=== PATIENT | female | born 1955 | race Caucasian/White ===

== ENCOUNTER 2016-11-24 12:12 | Inpatient (IN) | payer OTHER ==
[2016-11-24 12:43] VITALS: BMI 34.8
--- NOTE | 2016-11-24 15:17 | HP ---
CIWA Score - CIWA Score Nausea/Vomitin-No Nausea/No Vomiting Muscle Tremors: 3 Anxiety: 4-Mod. Anxious/Guarded Agitation: 3 Paroxysmal Sweats: 2 Orientation: 0-Oriented Tacttile Disturbances: 3-Moderate Itch/Numb/Burn Auditory Disturbances: 0-None Visual Disturbances: 0-None Headache: 0-None Present CIWA-Ar Total Score: 15 Admission ROS BHS - HPI Chief Complaint: DETOX TX FOR ALCOHOL DEPENDENCE Allergies/Adverse Reactions: Allergies Allergy/AdvReac Type Severity Reaction Status Date / Time Fish Containing Products Allergy Intermediate Rash Verified 11/24/16 14:08 No Known Drug Allergies Allergy Verified 11/24/16 14:08 History of Present Illness: 61 Y/O H/FEMALE WITH A HX OF ALCOHOL DEPENDENCE SEEKING DETOX TX Exam Limitations: No Limitations, Intoxication - Ebola screening Have you traveled outside of the country in the last 21 days: No Have you had contact with anyone from an Ebola affected area: No Have you been sick,other than usual withdrawal symptoms: No Do you have a fever: No - Review of Systems Constitutional: Chills, Night Sweats, Changes in sleep EENT: reports: Blurred Vision (WEARS GLASSES), Nose Congestion, Dental Problems (MISSING ALL TEETH) Respiratory: reports: Shortness of Breath (ASTHMA HX), Wheezing Cardiac: reports: Lightheadedness GI: reports: Constipated, Poor Appetite, Poor Fluid Intake, Indigestion (GERD HX ), Abdominal cramping : reports: Frequency Musculoskeletal: reports: Back Pain, Joint Pain, Muscle Pain Integumentary: reports: Dryness Neuro: reports: Headache, Unsteady Gait (USES WALKER), Dizziness Endocrine: reports: No Symptoms Reported Hematology: reports: No Symptoms Reported Psychiatric: reports: Orientated x3, Anxious, Depressed Other Systems: Reviewed and Negative Patient History - Patient Medical History Hx Anemia: No Hx Asthma: Yes (MDI) Hx Chronic Obstructive Pulmonary Disease (COPD): Yes Hx Cancer: No Hx Cardiac Disorders: No Hx Congestive Heart Failure: No Hx Hypertension: Yes (on meds.) Hx Hypercholesterolemia: No Hx Pacemaker: No HX Cerebrovascular Accident: No Hx Seizures: No Hx Dementia: No Hx Diabetes: No Hx Gastrointestinal Disorders: Yes (GERD) Hx Liver Disease: No Hx Genitourinary Disorders: No Hx Sexually Transmitted Disorders: No Hx Renal Disease (ESRD): No Hx Thyroid Disease: No Hx Human Immunodeficiency Virus (HIV): No (NEGATIVE HX) Hx Hepatitis C: Yes (carrier) Hx Depression: No Hx Suicide Attempt: No (DENIES) Hx Bipolar Disorder: No Hx Schizophrenia: No - Patient Surgical History Past Surgical History: Yes Hx Neurologic Surgery: No Hx Cataract Extraction: No Hx Cardiac Surgery: No Hx Lung Surgery: No Hx Breast Surgery: No Hx Breast Biopsy: No Hx Abdominal Surgery: No Hx Appendectomy: No Hx Cholecystectomy: No Hx Genitourinary Surgery: No Hx Section: No Hx Orthopedic Surgery: No Hx Hysterectomy: No Other Surgical History: TONSILLECTOMY AT 7 YRS OLD Anesthesia Reaction: No - PPD History Previous Implant?: Yes Documented Results: Positive w/proof Implanted On Prior [facility] Admission?: No Results: CXR 01/14/16 PPD to be Administered?: No - Reproductive History Patient is a Female of Child Bearing Age (11 -55 yrs old): No (MENOPAUSAL) Last Menstrual Period: 12/23/05 Patient : No - Smoking Cessation Smoking history: Current every day smoker Have you smoked in the past 12 months: Yes Aproximately how many cigarettes per day: 20 Hx Chewing Tobacco Use: No Initiated information on smoking cessation: Yes 'Breaking Loose' booklet given: 11/24/16 - Substance & Tx. History Hx Alcohol Use: Yes (BARCADI/BEER) Hx Substance Use: No (DENIES) Substance Use Type: Alcohol Hx Substance Use Treatment: Yes ([facility]-DETOX; [facility]-MMTP 50 MG PO DAILY) - Substances Abused Alcohol Route: Oral Frequency: Daily Amount used: 1/2 PINT RUM/ 3 40 OZ BEER Age of first use: 15 Date of Last Use: 11/24/16 Family Disease History - Family Disease History Family Disease History: Diabetes: Mother (parkinsons), Other: Father (alcoholic ), Mother Admission Physical Exam BHS - Vital Signs Vital Signs: Vital Signs - 24 hr 11/24/16 12:41 Temperature 96.7 F L Pulse Rate 75 Respiratory 20 Rate Blood Pressure 113/77 - Physical General Appearance: Yes: Moderate Distress, Irritable, Anxious HEENTM: Yes: EOMI, Normocephalic, AMELIA, Pharynx Normal Respiratory: Yes: Chest Non-Tender, No Respiratory Distress, Wheezing, Expiration Neck: Yes: Supple, Trachea in good position Breast: Yes: Breast Exam Deferred Cardiology: Yes: Regular Rhythm, Regular Rate, S1, S2 Abdominal: Yes: Normal Bowel Sounds, Non Tender, Soft Genitourinary: Yes: Other (N/C) Back: Yes: Within Normal Limits Musculoskeletal: Yes: full range of Motion, Gait Steady Extremities: Yes: Normal Range of Motion, Non-Tender Neurological: Yes: filter changer II-XII NML intact, Fully Oriented, Alert Integumentary: Yes: Dry, Warm Lymphatic: Yes: Within Normal Limits - Diagnostic (1) Alcohol dependence with uncomplicated withdrawal Current Visit: No Status: Chronic (2) COPD (chronic obstructive pulmonary disease) Current Visit: Yes Status: Chronic Qualifiers: COPD type: chronic bronchitis Chronic bronchitis type: simple Qualified Code(s): J41.0 - Simple chronic bronchitis (3) Essential hypertension Current Visit: Yes Status: Chronic (4) Low back pain Current Visit: Yes Status: Chronic Qualifiers: Back pain laterality: unspecified (5) Methadone maintenance therapy patient Current Visit: Yes Status: Chronic Comment: dose of 50mg pending verification (6) Nicotine dependence Current Visit: Yes Status: Chronic Qualifiers: Nicotine product type: cigarettes Substance use status: uncomplicated Qualified Code(s): F17.210 - Nicotine dependence, cigarettes, uncomplicated (7) PVD (peripheral vascular disease) Current Visit: Yes Status: Chronic (8) Walker as ambulation aid Current Visit: Yes Status: Chronic Cleared for Admission [facility] - Detox or Rehab [facility] Level of Care: Medically Managed Detox Regimen/Protocol: Librium [facility] Breath Alcohol Content Breath Alcohol Content: 0.037 Urine Pregancy Test - Result Urine Test Results: Negative- NO Line Present Urine Drug Screen - Results Drug Screen Negative: No Urine Drug Screen Results: MTD-Methadone
[2016-11-24] MEDS ORDERED: MENTHOL/PHENOL 1 EACH UD MM PRN (15:28)
[2016-11-24] MEDS ORDERED: hydrOXYzine PAMOATE 25 MG CAPSULE (FP) PO PRN (15:28)
[2016-11-24] MEDS ORDERED: MAGNESIUM HYDROX 2400MG/30ML ORAL SUSPENSION 30 ML CUP PO PRN (15:28)
[2016-11-24] MEDS ORDERED: P-EPHED 60MG/TRIPROLIDI 2.5MG TABLET PO PRN (15:28)
[2016-11-24] MEDS ORDERED: MAGNESIUM CITRATE 300 ML BOTTLE PO PRN (15:28)
[2016-11-24] MEDS ORDERED: NICOTINE POLACRILEX 4 MG GUM BUC PRN (15:28)
[2016-11-24] MEDS ORDERED: chlordiazePOXIDE HCL 25 MG CAPSULE PO PRN (15:28)
[2016-11-24] MEDS ORDERED: guaiFENesin/D-METHORPHAN HB 10 ML UNIT-DOSE CUPS PO PRN (15:28)
[2016-11-24] MEDS ORDERED: MAG HYDROX/AL HYDROX/SIMETH 30 ML UNIT-DOSE CUP PO PRN (15:28)
[2016-11-24] MEDS ORDERED: LOPERAMIDE HCL 2 MG CAPSULE PO PRN (15:28)
[2016-11-24] MEDS ORDERED: ALBUTEROL SO4 6.7 GM HFA INHALER IH PRN (15:30)
[2016-11-24] MEDS ORDERED: chlordiazePOXIDE HCL 25 MG CAPSULE PO ONE (15:42)
[2016-11-24] MEDS: chlordiazePOXIDE HCL 25 MG CAPSULE PO SCH ×2 (16:58→22:24)
[2016-11-24] MEDS: NICOTINE 21 MG/24 HOURS TOPICAL PATCH TD SCH (17:00)
[2016-11-24 19:07] LABS: URINE APPEARANCE CLEAR; URINE BILIRUBIN NEGATIVE (NEGATIVE); URINE BLOOD NEGATIVE (NEGATIVE); URINE COLOR COLORLESS; URINE GLUCOSE (UA) NEGATIVE (NEGATIVE); URINE KETONE NEGATIVE (NEGATIVE); URINE LEUK ESTERASE NEGATIVE (NEGATIVE); URINE NITRITE NEGATIVE (NEGATIVE); URINE PROTEIN NEGATIVE (NEGATIVE); URINE UROBILINOGEN NEGATIVE E.U./dl (0.2-1.0)
[2016-11-24] MEDS: BUDESONIDE/FORMETEROL FUMARATE 80/4.5 mcg INHALER IH SCH (22:00)
[2016-11-24] MEDS: MONTELUKAST NA 10 MG TABLET PO SCH (22:24)
[2016-11-24] MEDS: THIAMINE HCL 100 MG TABLET (FP) PO SCH (22:24)
[2016-11-24] MEDS: RANITIDINE HCL 150 MG TABLET (FP) PO SCH (22:26)
[2016-11-25] MEDS: IBUPROFEN 400 MG TABLET (FP) PO PRN (02:32)
[2016-11-25] MEDS: chlordiazePOXIDE HCL 25 MG CAPSULE PO SCH ×4 (05:29→22:10)
[2016-11-25] MEDS ORDERED: METHADONE HCL 10 MG TABLET PO ONE (08:31)
[2016-11-25] MEDS ORDERED: METHADONE 40 MG, METHADONE 10 MG PO ONE (08:40)
[2016-11-25] MEDS ORDERED: METHADONE HCL 40 MG DISPERSABLE TABLET ONE (09:04)
[2016-11-25] MEDS ORDERED: METHADONE HCL 10 MG TABLET ONE (09:04)
[2016-11-25] MEDS: HYDROCHLOROTHIAZIDE 25 MG TABLET (FP) PO SCH (09:56)
[2016-11-25] MEDS: PRENATAL VITAMINS W/ FOLIC ACID TABLET (FP) PO SCH (09:56)
[2016-11-25] MEDS: ENALAPRIL MALEATE 10 MG TABLET (FP) PO SCH (09:56)
[2016-11-25] MEDS: ASPIRIN COATED 81 MG TABLET.EC PO SCH (09:56)
[2016-11-25] MEDS: BUDESONIDE/FORMETEROL FUMARATE 80/4.5 mcg INHALER IH SCH ×2 (09:57→22:10)
[2016-11-25] MEDS: RANITIDINE HCL 150 MG TABLET (FP) PO SCH ×2 (09:57→22:10)
[2016-11-25] MEDS: NICOTINE 21 MG/24 HOURS TOPICAL PATCH TD SCH (09:59)
[2016-11-25 10:11] LABS: MCH 30.2 pg (25.7-33.7); MCHC 33.4 g/dl (32.0-36.0); MEAN CELL VOLUME 90.4 fl (80-96); MEAN PLT VOLUME 10.3 fl (7.5-11.1); PLATELET COUNT 136 K/MM3 (134-434); RDW 14.3 % (11.6-15.6); WHITE BLOOD COUNT 5.6 K/mm3 (4.0-10.0)
--- NOTE | 2016-11-25 10:33 | PN ---
S CIWA - CIWA Score Nausea/Vomitin Muscle Tremors: 3 Anxiety: 2 Agitation: 2 Paroxysmal Sweats: 3 Orientation: 0-Oriented Tacttile Disturbances: 2-Mild Itch/Numbness/Burn Auditory Disturbances: 0-None Visual Disturbances: 0-None Headache: 0-None Present CIWA-Ar Total Score: 14 S Progress Note (SOAP) Subjective: interrupted sleep, sweats, nausea,diarrhea, aches /pains Objective: 11/25/16 10:30 Vital Signs Temperature 97.9 F 11/25/16 09:41 Pulse Rate 69 11/25/16 09:41 Respiratory Rate 18 11/25/16 09:41 Blood Pressure 128/78 11/25/16 09:41 O2 Sat by Pulse Oximetry (%) Laboratory Tests 11/24/16 11/25/16 17:30 06:00 WBC 5.6 RBC 4.58 Hgb 13.8 Hct 41.4 MCV 90.4 MCHC 33.4 RDW 14.3 Plt Count 136 MPV 10.3 Urine Color Colorless Urine Appearance Clear Urine pH 6.0 Ur Specific [place] < 1.005 Urine Protein Negative Urine Glucose (UA) Negative Urine Ketones Negative Urine Blood Negative Urine Nitrite Negative Urine Bilirubin Negative Urine Urobilinogen Negative Ur Leukocyte Esterase Negative pt aox3 uses walker for ambulation 11/25/16 11:49 Assessment: 11/25/16 11:49 withdrawal sx's diarrhea Plan: cot. detox increase fluids imodium prn
[2016-11-25 10:56] LABS: ALBUMIN 3.5 g/dl (3.4-5.0); ALK PHOS 103 U/L (45-117); ANION GAP 8 (8-16); BILIRUBIN,TOTAL 0.5 mg/dL (0.2-1.0); CALCIUM 8.4 mg/dL (8.5-10.1); CO2 27 mmol/L (21-32); CREATININE 0.5 mg/dL (0.55-1.02); GLUCOSE,RANDOM 79 mg/dL (74-106); SGOT/AST 28 U/L (15-37); SGPT/ALT 29 U/L (12-78); TOT PROT 6.8 g/dl (6.4-8.2)
--- NOTE | 2016-11-25 17:38 | EKG ---
Test Reason : Blood Pressure : / mmHG Vent. Rate : 076 BPM Atrial Rate : 076 BPM P-R Int : 200 ms QRS Dur : 092 ms QT Int : 388 ms P-R-T Axes : 044 023 042 degrees QTc Int : 436 ms NORMAL SINUS RHYTHM NORMAL ECG NO PREVIOUS ECGS AVAILABLE Confirmed by ANTONETTE JONES MD ([id number]) on 11/25/2016 5:38:35 PM Referred By: Confirmed By:ANTONETTE JONES MD
[2016-11-25] MEDS: MONTELUKAST NA 10 MG TABLET PO SCH (22:10)
[2016-11-25] MEDS: THIAMINE HCL 100 MG TABLET (FP) PO SCH (22:10)
[2016-11-25] MEDS: diphenhydrAMINE HCL 50 MG CAPSULE PO PRN (22:13)
[2016-11-26] MEDS ORDERED: METHADONE HCL 10 MG TABLET ONE (05:09)
[2016-11-26] MEDS ORDERED: METHADONE HCL 40 MG DISPERSABLE TABLET ONE (05:09)
[2016-11-26] MEDS: METHADONE 40 MG, METHADONE 10 MG PO SCH (05:31)
[2016-11-26] MEDS: chlordiazePOXIDE HCL 25 MG CAPSULE PO SCH ×2 (05:31→10:57)
[2016-11-26] MEDS ORDERED: METHADONE HCL 5 MG TABLET PO SCH (06:00)
[2016-11-26] MEDS: ENALAPRIL MALEATE 10 MG TABLET (FP) PO SCH (10:57)
[2016-11-26] MEDS: ASPIRIN COATED 81 MG TABLET.EC PO SCH (10:57)
[2016-11-26] MEDS: NICOTINE 21 MG/24 HOURS TOPICAL PATCH TD SCH (10:57)
[2016-11-26] MEDS: HYDROCHLOROTHIAZIDE 25 MG TABLET (FP) PO SCH (10:57)
[2016-11-26] MEDS: PRENATAL VITAMINS W/ FOLIC ACID TABLET (FP) PO SCH (10:57)
[2016-11-26] MEDS: RANITIDINE HCL 150 MG TABLET (FP) PO SCH ×2 (10:57→22:20)
[2016-11-26] MEDS: BUDESONIDE/FORMETEROL FUMARATE 80/4.5 mcg INHALER IH SCH ×2 (10:59→22:20)
--- NOTE | 2016-11-26 12:03 | PN ---
[facility] CIWA - CIWA Score Nausea/Vomitin-No Nausea/No Vomiting Muscle Tremors: 3 Anxiety: 3 Agitation: 3 Paroxysmal Sweats: 3 Orientation: 0-Oriented Tacttile Disturbances: 0-None Auditory Disturbances: 0-None Visual Disturbances: 0-None Headache: 0-None Present CIWA-Ar Total Score: 12 [facility] Progress Note (SOAP) Subjective: body aches sweats interrupted sleep agitation Objective: 11/26/16 12:02 Vital Signs Temperature 97.9 F 11/26/16 10:52 Pulse Rate 76 11/26/16 10:52 Respiratory Rate 20 11/26/16 10:52 Blood Pressure 104/82 11/26/16 10:52 O2 Sat by Pulse Oximetry (%) Laboratory Tests 11/24/16 11/25/16 11/25/16 17:30 06:00 06:00 WBC 5.6 RBC 4.58 Hgb 13.8 Hct 41.4 MCV 90.4 MCHC 33.4 RDW 14.3 Plt Count 136 MPV 10.3 Sodium 137 Potassium 4.6 D Chloride 102 Carbon Dioxide 27 Anion Gap 8 BUN 12 Creatinine 0.5 L Creat Clearance w eGFR > 60 Random Glucose 79 Calcium 8.4 L Total Bilirubin 0.5 D AST 28 ALT 29 D Alkaline Phosphatase 103 Total Protein 6.8 Albumin 3.5 Urine Color Colorless Urine Appearance Clear Urine pH 6.0 Ur Specific [place] < 1.005 Urine Protein Negative Urine Glucose (UA) Negative Urine Ketones Negative Urine Blood Negative Urine Nitrite Negative Urine Bilirubin Negative Urine Urobilinogen Negative Ur Leukocyte Esterase Negative RPR Titer 11/25/16 06:00 WBC RBC Hgb Hct MCV MCHC RDW Plt Count MPV Sodium Potassium Chloride Carbon Dioxide Anion Gap BUN Creatinine Creat Clearance w eGFR Random Glucose Calcium Total Bilirubin AST ALT Alkaline Phosphatase Total Protein Albumin Urine Color Urine Appearance Urine pH Ur Specific [place] Urine Protein Urine Glucose (UA) Urine Ketones Urine Blood Urine Nitrite Urine Bilirubin Urine Urobilinogen Ur Leukocyte Esterase RPR Titer Nonreactive awake/alert ambulating no acute distress Assessment: 11/26/16 12:02 withdrawal sx Plan: continue detox increase fluids
[2016-11-26] MEDS: chlordiazePOXIDE 5 MG CAPSULE PO SCH ×2 (17:21→22:22)
[2016-11-26] MEDS: CYCLOBENZAPRINE HCL 10 MG TABLET (FP) PO PRN ×2 (20:07→22:25)
[2016-11-26] MEDS: MONTELUKAST NA 10 MG TABLET PO SCH (22:20)
[2016-11-26] MEDS: THIAMINE HCL 100 MG TABLET (FP) PO SCH (22:21)
[2016-11-26] MEDS: diphenhydrAMINE HCL 50 MG CAPSULE PO PRN (22:26)
[2016-11-27] MEDS ORDERED: METHADONE HCL 40 MG DISPERSABLE TABLET ONE (02:48)
[2016-11-27] MEDS ORDERED: METHADONE HCL 10 MG TABLET ONE (02:49)
[2016-11-27] MEDS: chlordiazePOXIDE 5 MG CAPSULE PO SCH ×2 (06:03→11:07)
[2016-11-27] MEDS: METHADONE 40 MG, METHADONE 10 MG PO SCH (06:03)
[2016-11-27] MEDS: CYCLOBENZAPRINE HCL 10 MG TABLET (FP) PO PRN ×2 (06:05→17:39)
[2016-11-27] MEDS: ENALAPRIL MALEATE 10 MG TABLET (FP) PO SCH (11:06)
[2016-11-27] MEDS: PRENATAL VITAMINS W/ FOLIC ACID TABLET (FP) PO SCH (11:06)
[2016-11-27] MEDS: RANITIDINE HCL 150 MG TABLET (FP) PO SCH ×2 (11:06→22:07)
[2016-11-27] MEDS: HYDROCHLOROTHIAZIDE 25 MG TABLET (FP) PO SCH (11:07)
[2016-11-27] MEDS: ASPIRIN COATED 81 MG TABLET.EC PO SCH (11:07)
[2016-11-27] MEDS: NICOTINE 21 MG/24 HOURS TOPICAL PATCH TD SCH (11:07)
[2016-11-27] MEDS: BUDESONIDE/FORMETEROL FUMARATE 80/4.5 mcg INHALER IH SCH ×2 (11:07→22:08)
--- NOTE | 2016-11-27 14:17 | PN ---
S Progress Note (SOAP) Subjective: Interrupted sleep, anxiety Objective: 11/27/16 14:17 Vital Signs - 8 hr 11/27/16 10:54 Temperature 97.9 F Pulse Rate 82 Respiratory 18 Rate Blood Pressure 110/62 Laboratory Last Values WBC 5.6 K/mm3 (4.0-10.0) 11/25/16 06:00 RBC 4.58 M/mm3 (3.60-5.2) 11/25/16 06:00 Hgb 13.8 GM/dL (10.7-15.3) 11/25/16 06:00 Hct 41.4 % (32.4-45.2) 11/25/16 06:00 MCV 90.4 fl (80-96) 11/25/16 06:00 MCHC 33.4 g/dl (32.0-36.0) 11/25/16 06:00 RDW 14.3 % (11.6-15.6) 11/25/16 06:00 Plt Count 136 K/MM3 (134-434) 11/25/16 06:00 MPV 10.3 fl (7.5-11.1) 11/25/16 06:00 Sodium 137 mmol/L (136-145) 11/25/16 06:00 Potassium 4.6 mmol/L (3.5-5.1) D 11/25/16 06:00 Chloride 102 mmol/L (98-107) 11/25/16 06:00 Carbon Dioxide 27 mmol/L (21-32) 11/25/16 06:00 Anion Gap 8 (8-16) 11/25/16 06:00 BUN 12 mg/dL (7-18) 11/25/16 06:00 Creatinine 0.5 mg/dL (0.55-1.02) L 11/25/16 06:00 Creat Clearance w eGFR > 60 (>60) 11/25/16 06:00 Random Glucose 79 mg/dL (74-106) 11/25/16 06:00 Calcium 8.4 mg/dL (8.5-10.1) L 11/25/16 06:00 Total Bilirubin 0.5 mg/dL (0.2-1.0) D 11/25/16 06:00 AST 28 U/L (15-37) 11/25/16 06:00 ALT 29 U/L (12-78) D 11/25/16 06:00 Alkaline Phosphatase 103 U/L (45-117) 11/25/16 06:00 Total Protein 6.8 g/dl (6.4-8.2) 11/25/16 06:00 Albumin 3.5 g/dl (3.4-5.0) 11/25/16 06:00 Urine Color Colorless 11/24/16 17:30 Urine Appearance Clear 11/24/16 17:30 Urine pH 6.0 (5.0-8.0) 11/24/16 17:30 Ur Specific [place] < 1.005 (1.001-1.035) 11/24/16 17:30 Urine Protein Negative (NEGATIVE) 11/24/16 17:30 Urine Glucose (UA) Negative (NEGATIVE) 11/24/16 17:30 Urine Ketones Negative (NEGATIVE) 11/24/16 17:30 Urine Blood Negative (NEGATIVE) 11/24/16 17:30 Urine Nitrite Negative (NEGATIVE) 11/24/16 17:30 Urine Bilirubin Negative (NEGATIVE) 11/24/16 17:30 Urine Urobilinogen Negative E.U./dl (0.2-1.0) 11/24/16 17:30 Ur Leukocyte Esterase Negative (NEGATIVE) 11/24/16 17:30 RPR Titer Nonreactive (NONREACTIVE) 11/25/16 06:00 Labs noted Assessment: 11/27/16 14:17 withdrawal sx Plan: continue detox
[2016-11-27] MEDS: chlordiazePOXIDE HCL 10 MG CAPSULE PO SCH ×2 (18:51→22:08)
[2016-11-27] MEDS: MONTELUKAST NA 10 MG TABLET PO SCH (22:07)
[2016-11-27] MEDS: THIAMINE HCL 100 MG TABLET (FP) PO SCH (22:07)
[2016-11-27] MEDS: diphenhydrAMINE HCL 50 MG CAPSULE PO PRN (22:08)
[2016-11-28] MEDS: IBUPROFEN 400 MG TABLET (FP) PO PRN (03:21)
[2016-11-28] MEDS ORDERED: METHADONE HCL 40 MG DISPERSABLE TABLET ONE (05:56)
[2016-11-28] MEDS ORDERED: METHADONE HCL 10 MG TABLET ONE (05:57)
[2016-11-28] MEDS: METHADONE 40 MG, METHADONE 10 MG PO SCH (05:57)
[2016-11-28] MEDS: chlordiazePOXIDE HCL 10 MG CAPSULE PO SCH ×2 (05:58→11:36)
[2016-11-28] MEDS: ACETAMINOPHEN 325 MG TABLET (FP) PO PRN ×2 (06:06→13:21)
[2016-11-28 09:54] VITALS: BP 115/73; PULSE 79; TEMP 97.2
--- NOTE | 2016-11-28 10:30 | DS ---
[facility] Detox Discharge Summary Admission Date: 11/24/16 Discharge Date: 11/28/16 - History Present History: Alcohol Dependence, MMTP Pertinent Past History: Asthma/COPD HTN GERD Hep C - Physical Exam Results Vital Signs: Vital Signs Temperature 97.2 F L 11/28/16 09:53 Pulse Rate 79 11/28/16 09:53 Respiratory Rate 16 11/28/16 09:53 Blood Pressure 115/73 11/28/16 09:53 O2 Sat by Pulse Oximetry (%) Pertinent Admission Physical Exam Findings: Withdrawal sx. Laboratory Last Values WBC 5.6 K/mm3 (4.0-10.0) 11/25/16 06:00 RBC 4.58 M/mm3 (3.60-5.2) 11/25/16 06:00 Hgb 13.8 GM/dL (10.7-15.3) 11/25/16 06:00 Hct 41.4 % (32.4-45.2) 11/25/16 06:00 MCV 90.4 fl (80-96) 11/25/16 06:00 MCHC 33.4 g/dl (32.0-36.0) 11/25/16 06:00 RDW 14.3 % (11.6-15.6) 11/25/16 06:00 Plt Count 136 K/MM3 (134-434) 11/25/16 06:00 MPV 10.3 fl (7.5-11.1) 11/25/16 06:00 Sodium 137 mmol/L (136-145) 11/25/16 06:00 Potassium 4.6 mmol/L (3.5-5.1) D 11/25/16 06:00 Chloride 102 mmol/L (98-107) 11/25/16 06:00 Carbon Dioxide 27 mmol/L (21-32) 11/25/16 06:00 Anion Gap 8 (8-16) 11/25/16 06:00 BUN 12 mg/dL (7-18) 11/25/16 06:00 Creatinine 0.5 mg/dL (0.55-1.02) L 11/25/16 06:00 Creat Clearance w eGFR > 60 (>60) 11/25/16 06:00 Random Glucose 79 mg/dL (74-106) 11/25/16 06:00 Calcium 8.4 mg/dL (8.5-10.1) L 11/25/16 06:00 Total Bilirubin 0.5 mg/dL (0.2-1.0) D 11/25/16 06:00 AST 28 U/L (15-37) 11/25/16 06:00 ALT 29 U/L (12-78) D 11/25/16 06:00 Alkaline Phosphatase 103 U/L (45-117) 11/25/16 06:00 Total Protein 6.8 g/dl (6.4-8.2) 11/25/16 06:00 Albumin 3.5 g/dl (3.4-5.0) 11/25/16 06:00 Urine Color Colorless 11/24/16 17:30 Urine Appearance Clear 11/24/16 17:30 Urine pH 6.0 (5.0-8.0) 11/24/16 17:30 Ur Specific [place] < 1.005 (1.001-1.035) 11/24/16 17:30 Urine Protein Negative (NEGATIVE) 11/24/16 17:30 Urine Glucose (UA) Negative (NEGATIVE) 11/24/16 17:30 Urine Ketones Negative (NEGATIVE) 11/24/16 17:30 Urine Blood Negative (NEGATIVE) 11/24/16 17:30 Urine Nitrite Negative (NEGATIVE) 11/24/16 17:30 Urine Bilirubin Negative (NEGATIVE) 11/24/16 17:30 Urine Urobilinogen Negative E.U./dl (0.2-1.0) 11/24/16 17:30 Ur Leukocyte Esterase Negative (NEGATIVE) 11/24/16 17:30 RPR Titer Nonreactive (NONREACTIVE) 11/25/16 06:00 labs noted - Treatment Hospital Course: Detox Protocol Followed, Detoxed Safely, Responded well, Discharged Condition Good, Rehab Referral Accepted Patient has Accepted a Rehab Referral to: Rehab after 12/01/16 - Medication Discharge Medications: Ambulatory Orders Albuterol Sulfate Inhaler - [Ventolin HFA Inhaler -] 2 puff IH Q4H PRN #1 inhaler 07/20/16 Aspirin Coated [Ecotrin -] 81 mg PO DAILY #30 tablet.ec 07/20/16 Budesonide/Formeterol Fumarate [SYMBICORT 80/4.5mcg -] 2 puff IH BID #1 inhaler 07/20/16 Enalapril Maleate [Vasotec -] 20 mg PO DAILY #30 tablet 07/20/16 Hydrochlorothiazide [Hctz -] 25 mg PO DAILY #30 tablet 07/20/16 Montelukast Na [Singulair -] 10 mg PO HS #30 tablet 07/20/16 Ranitidine [Zantac -] 150 mg PO BID #60 tablet 07/20/16 - Diagnosis (1) COPD (chronic obstructive pulmonary disease) Current Visit: Yes Status: Chronic Qualifiers: COPD type: chronic bronchitis Chronic bronchitis type: simple Qualified Code(s): J41.0 - Simple chronic bronchitis (2) Essential hypertension Current Visit: Yes Status: Chronic (3) Low back pain Current Visit: Yes Status: Chronic Qualifiers: Back pain laterality: unspecified (4) Methadone maintenance therapy patient Current Visit: Yes Status: Chronic (5) Nicotine dependence Current Visit: Yes Status: Chronic Qualifiers: Nicotine product type: cigarettes Substance use status: uncomplicated Qualified Code(s): F17.210 - Nicotine dependence, cigarettes, uncomplicated (6) PVD (peripheral vascular disease) Current Visit: Yes Status: Chronic (7) Walker as ambulation aid Current Visit: Yes Status: Chronic (8) Alcohol dependence with uncomplicated withdrawal Current Visit: Yes Status: Chronic - AMA Did Patient Leave Against Medical Advice: No
[2016-11-28] MEDS: ENALAPRIL MALEATE 10 MG TABLET (FP) PO SCH (10:44)
[2016-11-28] MEDS: HYDROCHLOROTHIAZIDE 25 MG TABLET (FP) PO SCH (10:44)
[2016-11-28] MEDS: ASPIRIN COATED 81 MG TABLET.EC PO SCH (10:44)
[2016-11-28] MEDS: RANITIDINE HCL 150 MG TABLET (FP) PO SCH (10:44)
[2016-11-28] MEDS: BUDESONIDE/FORMETEROL FUMARATE 80/4.5 mcg INHALER IH SCH (10:44)
[2016-11-28] MEDS: PRENATAL VITAMINS W/ FOLIC ACID TABLET (FP) PO SCH (10:44)
[2016-11-28] MEDS: NICOTINE 21 MG/24 HOURS TOPICAL PATCH TD SCH (11:36)
== END 2016-11-28 13:25 | disposition home or self-care (01) | DRG 773 ==
LOC: YASAS 12:12 → Y6N 14:29
PROVIDERS: ADMIT Internal Medicine Addiction Medicine; ATTEND Internal Medicine Addiction Medicine
PROC: HZ2ZZZZ Detoxification Services for Substance Abuse Treatment (ICD-10-PCS; principal; 2016-11-24)
DX: F10.230 Alcohol dependence with withdrawal, uncomplicated (principal); F11.20 Opioid dependence, uncomplicated; F17.210 Nicotine dependence, cigarettes, uncomplicated; I10 Essential (primary) hypertension; M54.5 Low back pain; R26.2 Difficulty in walking, not elsewhere classified; Z99.89 Dependence on other enabling machines and devices; I73.9 Peripheral vascular disease, unspecified; J45.909 Unspecified asthma, uncomplicated; J41.0 Simple chronic bronchitis; K21.9 Gastro-esophageal reflux disease without esophagitis; B18.2 Chronic viral hepatitis C; R19.7 Diarrhea, unspecified
CPT/HCPCS: 36415; 80053; 81003; 85027; 86593; 93005; 93010

== ENCOUNTER 2017-05-07 10:43 | Inpatient (IN) | payer OTHER ==
[2017-05-07 12:15] VITALS: BMI 36.6
[2017-05-07] MEDS ORDERED: P-EPHED 60MG/TRIPROLIDI 2.5MG TABLET PO PRN (14:56)
[2017-05-07] MEDS ORDERED: MAGNESIUM HYDROX 2400MG/30ML ORAL SUSPENSION 30 ML CUP PO PRN (14:56)
[2017-05-07] MEDS ORDERED: hydrOXYzine PAMOATE 50 MG CAPSULE (FP) PO PRN (14:56)
[2017-05-07] MEDS ORDERED: MAGNESIUM CITRATE 300 ML BOTTLE PO PRN (14:56)
[2017-05-07] MEDS ORDERED: guaiFENesin/D-METHORPHAN HB 10 ML UNIT-DOSE CUPS PO PRN (14:56)
[2017-05-07] MEDS ORDERED: NICOTINE POLACRILEX 4 MG GUM BC PRN (14:56)
[2017-05-07] MEDS ORDERED: chlordiazePOXIDE HCL 25 MG CAPSULE PO PRN (14:56)
[2017-05-07] MEDS ORDERED: MENTHOL/PHENOL 1 EACH UD MM PRN (14:56)
[2017-05-07] MEDS ORDERED: LOPERAMIDE HCL 2 MG CAPSULE PO PRN (14:56)
[2017-05-07] MEDS ORDERED: MAG HYDROX/AL HYDROX/SIMETH 30 ML UNIT-DOSE CUP PO PRN (14:56)
[2017-05-07] MEDS ORDERED: chlordiazePOXIDE HCL 25 MG CAPSULE PO ONE (14:56)
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
[2017-05-07] MEDS ORDERED: ALBUTEROL SO4 18 GM HFA INHALER IH PRN (14:58)
[2017-05-07] MEDS ORDERED: diazePAM 5 MG TABLET PO PRN (15:00)
--- NOTE | 2017-05-07 18:19 | PN ---
S Progress Note Note: 62 years old female with alcohol dependence,mmtp 50 mgs/day,last medicated today ,admitted for inpatinet detox from alcohol medical managed with librium regimen
[2017-05-07 18:43] LABS: URINE APPEARANCE CLEAR; URINE BILIRUBIN NEGATIVE (NEGATIVE); URINE BLOOD 1+ (NEGATIVE); URINE COLOR LTYELLOW; URINE GLUCOSE (UA) NEGATIVE (NEGATIVE); URINE KETONE NEGATIVE (NEGATIVE); URINE NITRITE NEGATIVE (NEGATIVE); URINE PROTEIN NEGATIVE (NEGATIVE); URINE UROBILINOGEN NEGATIVE mg/dL (0.2-1.0)
[2017-05-07] MEDS: chlordiazePOXIDE HCL 25 MG CAPSULE PO SCH ×2 (18:49→22:36)
[2017-05-07] MEDS: ACETAMINOPHEN 325 MG TABLET (FP) PO PRN (18:50)
[2017-05-07 19:00] LABS: URINE BACTERIA RARE /hpf (NONE SEEN); URINE MUCUS RARE; URINE RBC 5 /hpf (0-3); URINE WBC <1 /hpf (3-5)
[2017-05-07 21:00] LABS: URINE LEUK ESTERASE Negative (NEGATIVE)
[2017-05-07] MEDS: RANITIDINE HCL 150 MG TABLET (FP) PO SCH (22:35)
[2017-05-07] MEDS: MONTELUKAST NA 10 MG TABLET PO SCH (22:35)
[2017-05-07] MEDS: BUDESONIDE/FORMETEROL FUMARATE 80/4.5 mcg INHALER IH SCH (22:35)
[2017-05-07] MEDS: THIAMINE HCL 100 MG TABLET (FP) PO SCH (22:35)
[2017-05-08] MEDS: chlordiazePOXIDE HCL 25 MG CAPSULE PO SCH ×4 (05:34→22:46)
[2017-05-08] MEDS: ACETAMINOPHEN 325 MG TABLET (FP) PO PRN (05:53)
[2017-05-08] MEDS ORDERED: METHADONE HCL 10 MG TABLET PO ONE (09:45)
[2017-05-08] MEDS ORDERED: METHADONE HCL 10 MG TABLET (FOR DETOX USE ONLY) PO ONE (10:00)
[2017-05-08] MEDS: ASPIRIN COATED 81 MG TABLET.EC PO SCH (10:21)
[2017-05-08] MEDS: ENALAPRIL MALEATE 10 MG TABLET (FP) PO SCH (10:21)
[2017-05-08] MEDS: PRENATAL VITAMINS W/ FOLIC ACID TABLET (FP) PO SCH (10:21)
[2017-05-08] MEDS: HYDROCHLOROTHIAZIDE 25 MG TABLET (FP) PO SCH (10:21)
[2017-05-08] MEDS: NICOTINE 21 MG/24 HOURS TOPICAL PATCH TD SCH (10:21)
[2017-05-08] MEDS: RANITIDINE HCL 150 MG TABLET (FP) PO SCH ×2 (10:21→22:46)
[2017-05-08] MEDS: BUDESONIDE/FORMETEROL FUMARATE 80/4.5 mcg INHALER IH SCH ×2 (10:24→22:45)
[2017-05-08 11:33] LABS: MCH 29.8 pg (25.7-33.7); MCHC 32.3 g/dl (32.0-36.0); MEAN CELL VOLUME 92.2 fl (80-96); MEAN PLT VOLUME 10.2 fl (7.5-11.1); PLATELET COUNT 153 K/MM3 (134-434); RDW 14.7 % (11.6-15.6); WHITE BLOOD COUNT 5.7 K/mm3 (4.0-10.0)
[2017-05-08 11:49] LABS: ALBUMIN 3.2 g/dl (3.4-5.0); ANION GAP 5 (8-16); BILIRUBIN,TOTAL 0.5 mg/dL (0.2-1.0); CALCIUM 8.6 mg/dL (8.5-10.1); CO2 31 mmol/L (21-32); CREATININE 0.6 mg/dL (0.55-1.02); GLUCOSE,RANDOM 106 mg/dL (74-106); SGOT/AST 25 U/L (15-37); SGPT/ALT 29 U/L (12-78); TOT PROT 6.7 g/dl (6.4-8.2)
[2017-05-08 11:50] LABS: ALK PHOS 99 U/L (45-117)
[2017-05-08 12:17] LABS: HIV 1 & 2 AB NEGATIVE; HIV 1 AGp24 NEGATIVE
--- NOTE | 2017-05-08 15:23 | PN ---
S CIWA - CIWA Score Nausea/Vomitin Muscle Tremors: 3 Anxiety: 3 Agitation: 2 Paroxysmal Sweats: 1-Minimal Palms Moist Orientation: 0-Oriented Tacttile Disturbances: 1-Very Mild Itch/Numbness Auditory Disturbances: 1-Very Mild Visual Disturbances: 0-None Headache: 2-Mild CIWA-Ar Total Score: 16 BHS Progress Note (SOAP) Subjective: ALERT,IRRITABLE,ANXIOUS,INTERRUPTED SLEEP,TREMOR Objective: 05/08/17 15:19 Vital Signs Temperature 97.7 F 05/08/17 11:15 Pulse Rate 97 H 05/08/17 11:15 Respiratory Rate 18 05/08/17 11:15 Blood Pressure 114/86 05/08/17 11:15 O2 Sat by Pulse Oximetry (%) EKG NSR,INVERTED T IN V2 NO CHEST PAIN,NO SOB,NO DIZZINESS Laboratory Last Values WBC 5.7 K/mm3 (4.0-10.0) 05/08/17 07:45 RBC 4.66 M/mm3 (3.60-5.2) 05/08/17 07:45 Hgb 13.9 GM/dL (10.7-15.3) 05/08/17 07:45 Hct 42.9 % (32.4-45.2) 05/08/17 07:45 MCV 92.2 fl (80-96) 05/08/17 07:45 MCH 29.8 pg (25.7-33.7) 05/08/17 07:45 MCHC 32.3 g/dl (32.0-36.0) 05/08/17 07:45 RDW 14.7 % (11.6-15.6) 05/08/17 07:45 Plt Count 153 K/MM3 (134-434) 05/08/17 07:45 MPV 10.2 fl (7.5-11.1) 05/08/17 07:45 Sodium 141 mmol/L (136-145) 05/08/17 07:45 Potassium 4.4 mmol/L (3.5-5.1) 05/08/17 07:45 Chloride 105 mmol/L (98-107) 05/08/17 07:45 Carbon Dioxide 31 mmol/L (21-32) 05/08/17 07:45 Anion Gap 5 (8-16) L 05/08/17 07:45 BUN 14 mg/dL (7-18) 05/08/17 07:45 Creatinine 0.6 mg/dL (0.55-1.02) 05/08/17 07:45 Creat Clearance w eGFR > 60 (>60) 05/08/17 07:45 Random Glucose 106 mg/dL (74-106) D 05/08/17 07:45 Calcium 8.6 mg/dL (8.5-10.1) 05/08/17 07:45 Total Bilirubin 0.5 mg/dL (0.2-1.0) 05/08/17 07:45 AST 25 U/L (15-37) 05/08/17 07:45 ALT 29 U/L (12-78) 05/08/17 07:45 Alkaline Phosphatase 99 U/L (45-117) 05/08/17 07:45 Total Protein 6.7 g/dl (6.4-8.2) 05/08/17 07:45 Albumin 3.2 g/dl (3.4-5.0) L 05/08/17 07:45 Urine Color Ltyellow 05/07/17 09:49 Urine Appearance Clear 05/07/17 09:49 Urine pH 6.0 (5.0-8.0) 05/07/17 09:49 Ur Specific [place] 1.010 (1.005-1.025) 05/07/17 09:49 Urine Protein Negative (NEGATIVE) 05/07/17 09:49 Urine Glucose (UA) Negative (NEGATIVE) 05/07/17 09:49 Urine Ketones Negative (NEGATIVE) 05/07/17 09:49 Urine Blood 1+ (NEGATIVE) H 05/07/17 09:49 Urine Nitrite Negative (NEGATIVE) 05/07/17 09:49 Urine Bilirubin Negative (NEGATIVE) 05/07/17 09:49 Urine Urobilinogen Negative mg/dL (0.2-1.0) 05/07/17 09:49 Ur Leukocyte Esterase Negative (NEGATIVE) 05/07/17 09:49 Urine RBC 5 /hpf (0-3) 05/07/17 09:49 Urine WBC <1 /hpf (3-5) 05/07/17 09:49 Ur Epithelial Cells Rare /hpf (FEW) 05/07/17 09:49 Urine Bacteria Rare /hpf (NONE SEEN) 05/07/17 09:49 Urine Mucus Rare 05/07/17 09:49 RPR Titer Nonreactive (NONREACTIVE) 05/08/17 07:45 HIV 1&2 Antibody Screen Negative 05/08/17 07:45 HIV P24 Antigen Negative 05/08/17 07:45 Assessment: 05/08/17 15:20 WITHDRAWAL SYMPTOM Plan: CONTINUE DETOX,PATIENT IS ON MMTP 50 MGS/DAY,STATED LEAVE TIE BOTTLE TO TAKE HOME FOR TODAY AT HOME,METHADONE 20 MGS PO TODAY WILL VERIFY WITH PATIENT'S METHDONE PROGRAM IN AM
--- NOTE | 2017-05-08 15:44 | PN ---
BHS CIWA - CIWA Score Nausea/Vomitin Muscle Tremors: 3 Anxiety: 3 Agitation: 3 Paroxysmal Sweats: 1-Minimal Palms Moist Orientation: 0-Oriented Tacttile Disturbances: 1-Very Mild Itch/Numbness Auditory Disturbances: 1-Very Mild Visual Disturbances: 0-None Headache: 2-Mild CIWA-Ar Total Score: 17
[2017-05-08] MEDS ORDERED: FLU VACCINE QUAD 60 MCG/0.5 ML (MDV 17-18) IM ONE ×2 (16:00→17:00)
[2017-05-08] MEDS: MONTELUKAST NA 10 MG TABLET PO SCH (22:46)
[2017-05-08] MEDS: THIAMINE HCL 100 MG TABLET (FP) PO SCH (22:48)
[2017-05-08] MEDS: IBUPROFEN 400 MG TABLET (FP) PO PRN (22:49)
[2017-05-09] MEDS: chlordiazePOXIDE HCL 25 MG CAPSULE PO SCH ×2 (06:26→10:52)
[2017-05-09] MEDS ORDERED: METHADONE HCL 10 MG TABLET PO ONE (08:55)
[2017-05-09] MEDS ORDERED: METHADONE 40 MG, METHADONE 10 MG PO ONE (09:05)
[2017-05-09] MEDS ORDERED: METHADONE HCL 40 MG DISPERSABLE TABLET ONE (09:12)
[2017-05-09] MEDS ORDERED: METHADONE HCL 10 MG TABLET ONE (09:12)
[2017-05-09] MEDS ORDERED: METHADONE HCL 5 MG TABLET (FOR DETOX USE ONLY) PO ONE (10:00)
[2017-05-09] MEDS: HYDROCHLOROTHIAZIDE 25 MG TABLET (FP) PO SCH (10:52)
[2017-05-09] MEDS: RANITIDINE HCL 150 MG TABLET (FP) PO SCH ×2 (10:52→22:37)
[2017-05-09] MEDS: PRENATAL VITAMINS W/ FOLIC ACID TABLET (FP) PO SCH (10:52)
[2017-05-09] MEDS: ASPIRIN COATED 81 MG TABLET.EC PO SCH (10:52)
[2017-05-09] MEDS: ENALAPRIL MALEATE 10 MG TABLET (FP) PO SCH (10:53)
[2017-05-09] MEDS: NICOTINE 21 MG/24 HOURS TOPICAL PATCH TD SCH (10:53)
[2017-05-09] MEDS: IBUPROFEN 400 MG TABLET (FP) PO PRN (10:58)
--- NOTE | 2017-05-09 11:37 | PN ---
BHS Progress Note (SOAP) Subjective: agitation interrupted sleep sweats Objective: 05/09/17 11:36 Vital Signs Temperature 98.1 F 05/09/17 11:23 Pulse Rate 74 05/09/17 11:23 Respiratory Rate 18 05/09/17 11:23 Blood Pressure 114/76 05/09/17 11:23 O2 Sat by Pulse Oximetry (%) Laboratory Tests 05/07/17 05/08/17 05/08/17 09:49 07:45 07:45 WBC 5.7 RBC 4.66 Hgb 13.9 Hct 42.9 MCV 92.2 MCH 29.8 MCHC 32.3 RDW 14.7 Plt Count 153 MPV 10.2 Sodium Potassium Chloride Carbon Dioxide Anion Gap BUN Creatinine Creat Clearance w eGFR Random Glucose Calcium Total Bilirubin AST ALT Alkaline Phosphatase Total Protein Albumin Urine Color Ltyellow Urine Appearance Clear Urine pH 6.0 Ur Specific [place] 1.010 Urine Protein Negative Urine Glucose (UA) Negative Urine Ketones Negative Urine Blood 1+ H Urine Nitrite Negative Urine Bilirubin Negative Urine Urobilinogen Negative Ur Leukocyte Esterase Negative Urine RBC 5 Urine WBC <1 Ur Epithelial Cells Rare Urine Bacteria Rare Urine Mucus Rare RPR Titer HIV 1&2 Antibody Screen Negative HIV P24 Antigen Negative 05/08/17 05/08/17 07:45 07:45 WBC RBC Hgb Hct MCV MCH MCHC RDW Plt Count MPV Sodium 141 Potassium 4.4 Chloride 105 Carbon Dioxide 31 Anion Gap 5 L BUN 14 Creatinine 0.6 Creat Clearance w eGFR > 60 Random Glucose 106 D Calcium 8.6 Total Bilirubin 0.5 AST 25 ALT 29 Alkaline Phosphatase 99 Total Protein 6.7 Albumin 3.2 L Urine Color Urine Appearance Urine pH Ur Specific [place] Urine Protein Urine Glucose (UA) Urine Ketones Urine Blood Urine Nitrite Urine Bilirubin Urine Urobilinogen Ur Leukocyte Esterase Urine RBC Urine WBC Ur Epithelial Cells Urine Bacteria Urine Mucus RPR Titer Nonreactive HIV 1&2 Antibody Screen HIV P24 Antigen aaox3 ambulating no acute distress Assessment: 05/09/17 11:37 withdrawal sx Plan: continue detox increase fluids
[2017-05-09] MEDS: BUDESONIDE/FORMETEROL FUMARATE 80/4.5 mcg INHALER IH SCH ×2 (11:57→22:37)
[2017-05-09] MEDS ORDERED: cloNIDine HCL 0.1 MG TABLET PO ONE (15:58)
[2017-05-09] MEDS: chlordiazePOXIDE 5 MG CAPSULE PO SCH ×2 (17:08→22:37)
[2017-05-09] MEDS: THIAMINE HCL 100 MG TABLET (FP) PO SCH (22:37)
[2017-05-09] MEDS: MONTELUKAST NA 10 MG TABLET PO SCH (22:37)
[2017-05-10] MEDS: IBUPROFEN 400 MG TABLET (FP) PO PRN (05:22)
[2017-05-10] MEDS ORDERED: METHADONE HCL 40 MG DISPERSABLE TABLET ONE (05:27)
[2017-05-10] MEDS ORDERED: METHADONE HCL 10 MG TABLET ONE (05:27)
[2017-05-10] MEDS ORDERED: METHADONE HCL 40 MG DISPERSABLE TABLET PO SCH (06:00)
[2017-05-10] MEDS: METHADONE 40 MG, METHADONE 10 MG PO SCH (06:16)
[2017-05-10] MEDS: chlordiazePOXIDE 5 MG CAPSULE PO SCH ×2 (06:17→10:32)
--- NOTE | 2017-05-10 07:24 | EKG ---
Test Reason : Blood Pressure : / mmHG Vent. Rate : 072 BPM Atrial Rate : 072 BPM P-R Int : 190 ms QRS Dur : 090 ms QT Int : 410 ms P-R-T Axes : 042 012 041 degrees QTc Int : 448 ms NORMAL SINUS RHYTHM SEPTAL INFARCT , AGE UNDETERMINED ABNORMAL ECG WHEN COMPARED WITH ECG OF 24-NOV-2016 16:04, NO SIGNIFICANT CHANGE WAS FOUND Confirmed by JAMI POWER MD ([id number]) on 05/10/2017 7:23:45 AM Referred By: Linnette Bob Confirmed By:JAMI POWER MD
[2017-05-10] MEDS ORDERED: METHADONE HCL 5 MG TABLET (FOR DETOX USE ONLY) PO ONE (10:00)
[2017-05-10] MEDS: RANITIDINE HCL 150 MG TABLET (FP) PO SCH ×2 (10:31→22:21)
[2017-05-10] MEDS: ASPIRIN COATED 81 MG TABLET.EC PO SCH (10:31)
[2017-05-10] MEDS: BUDESONIDE/FORMETEROL FUMARATE 80/4.5 mcg INHALER IH SCH ×2 (10:31→22:21)
[2017-05-10] MEDS: NICOTINE 21 MG/24 HOURS TOPICAL PATCH TD SCH (10:32)
[2017-05-10] MEDS: HYDROCHLOROTHIAZIDE 25 MG TABLET (FP) PO SCH (10:32)
[2017-05-10] MEDS: PRENATAL VITAMINS W/ FOLIC ACID TABLET (FP) PO SCH (10:32)
[2017-05-10] MEDS: ENALAPRIL MALEATE 10 MG TABLET (FP) PO SCH (10:32)
--- NOTE | 2017-05-10 10:53 | PN ---
BHS Progress Note (SOAP) Subjective: sweats anxious Objective: 05/10/17 10:52 Vital Signs Temperature 97.5 F L 05/10/17 10:00 Pulse Rate 83 05/10/17 10:00 Respiratory Rate 16 05/10/17 10:00 Blood Pressure 112/80 05/10/17 10:00 O2 Sat by Pulse Oximetry (%) aaox3 ambulating no acute distress Assessment: 05/10/17 10:52 withdrawal sx Plan: continue detox increase fluids
[2017-05-10] MEDS: chlordiazePOXIDE HCL 10 MG CAPSULE PO SCH ×2 (17:15→22:21)
[2017-05-10] MEDS: THIAMINE HCL 100 MG TABLET (FP) PO SCH (22:21)
[2017-05-10] MEDS: MONTELUKAST NA 10 MG TABLET PO SCH (22:21)
[2017-05-11] MEDS: IBUPROFEN 400 MG TABLET (FP) PO PRN (02:57)
[2017-05-11] MEDS ORDERED: METHADONE HCL 40 MG DISPERSABLE TABLET ONE (04:08)
[2017-05-11] MEDS ORDERED: METHADONE HCL 10 MG TABLET ONE (04:09)
[2017-05-11] MEDS: chlordiazePOXIDE HCL 10 MG CAPSULE PO SCH (06:01)
[2017-05-11] MEDS: METHADONE 40 MG, METHADONE 10 MG PO SCH (06:01)
[2017-05-11 06:54] VITALS: BP 117/90; PULSE 87; TEMP 96.6
--- NOTE | 2017-05-11 08:19 | DS ---
[facility] Detox Discharge Summary Admission Date: 05/07/17 Discharge Date: 05/11/17 - History Present History: Alcohol Dependence Additional Comments: follow up with after care program as arrangement Pertinent Past History: essential hypertension low back pain mmtp niicotine dependence walker ambulatory aid asthma hepatitis c - Physical Exam Results Vital Signs: Vital Signs Temperature 96.6 F L 05/11/17 06:53 Pulse Rate 87 05/11/17 06:53 Respiratory Rate 18 05/11/17 06:53 Blood Pressure 117/90 05/11/17 06:53 O2 Sat by Pulse Oximetry (%) Pertinent Admission Physical Exam Findings: withdrawal symptom - Treatment Hospital Course: Detox Protocol Followed, Detoxed Safely, Responded well, Discharged Condition Good Patient has Accepted a Rehab Referral to: declined - Medication Discharge Medications: Ambulatory Orders Albuterol Sulfate Inhaler - [Ventolin HFA Inhaler -] 2 puff IH Q4H PRN #1 inhaler 07/20/16 Aspirin Coated [Ecotrin -] 81 mg PO DAILY #30 tablet.ec 07/20/16 Budesonide/Formeterol Fumarate [SYMBICORT 80/4.5mcg -] 2 puff IH BID #1 inhaler 07/20/16 Enalapril Maleate [Vasotec -] 20 mg PO DAILY #30 tablet 07/20/16 Hydrochlorothiazide [Hctz -] 25 mg PO DAILY #30 tablet 07/20/16 Montelukast Na [Singulair -] 10 mg PO HS #30 tablet 07/20/16 Ranitidine [Zantac -] 150 mg PO BID #60 tablet 07/20/16 - Diagnosis (1) Alcohol dependence with uncomplicated withdrawal Current Visit: Yes Status: Acute (2) Asthma Current Visit: Yes Status: Acute (3) COPD (chronic obstructive pulmonary disease) Current Visit: Yes Status: Acute Qualifiers: COPD type: chronic bronchitis Chronic bronchitis type: simple Qualified Code(s): J41.0 - Simple chronic bronchitis; J41.0 - Simple chronic bronchitis; J41.0 - Simple chronic bronchitis; J41.0 - Simple chronic bronchitis (4) Essential hypertension Current Visit: Yes Status: Acute (5) Nicotine dependence Current Visit: Yes Status: Acute Qualifiers: Nicotine product type: cigarettes Substance use status: uncomplicated Qualified Code(s): F17.210 - Nicotine dependence, cigarettes, uncomplicated; F17.210 - Nicotine dependence, cigarettes, uncomplicated (6) Low back pain Current Visit: Yes Status: Chronic Qualifiers: Back pain laterality: unspecified (7) Walker as ambulation aid Current Visit: Yes Status: Chronic (8) Methadone maintenance therapy patient Current Visit: No Status: Chronic (9) PVD (peripheral vascular disease) Current Visit: No Status: Chronic (10) Hepatitis C Current Visit: Yes Status: Acute - AMA Did Patient Leave Against Medical Advice: No
[2017-05-11] MEDS ORDERED: METHADONE HCL 10 MG TABLET (FOR DETOX USE ONLY) PO ONE (10:00)
[2017-05-12] MEDS ORDERED: METHADONE HCL 5 MG TABLET (FOR DETOX USE ONLY) PO ONE (06:00)
== END 2017-05-11 07:55 | disposition home or self-care (01) | DRG 773 ==
LOC: YASAS 10:43 → Y6N 14:47
PROVIDERS: ADMIT Internal Medicine; ATTEND Internal Medicine
PROC: HZ2ZZZZ Detoxification Services for Substance Abuse Treatment (ICD-10-PCS; principal; 2017-05-07)
DX: F11.20 Opioid dependence, uncomplicated (principal); F10.230 Alcohol dependence with withdrawal, uncomplicated; F17.210 Nicotine dependence, cigarettes, uncomplicated; I10 Essential (primary) hypertension; J41.0 Simple chronic bronchitis; J45.909 Unspecified asthma, uncomplicated; B18.2 Chronic viral hepatitis C; M54.5 Low back pain; G89.29 Other chronic pain; I73.9 Peripheral vascular disease, unspecified; R26.89 Other abnormalities of gait and mobility; Z99.89 Dependence on other enabling machines and devices
CPT/HCPCS: 36415; 71020-TC; 80053; 81003; 81015; 85027; 86593; 87389; 90688; 93005; 93010; G0008

== ENCOUNTER 2017-09-16 15:39 | Inpatient (IN) | payer OTHER ==
[2017-09-16 16:38] VITALS: BMI 35.5
--- NOTE | 2017-09-16 21:08 | HP ---
CIWA Score - CIWA Score Nausea/Vomitin-Mild Nausea/No Vomiting Muscle Tremors: 2 Anxiety: 2 Agitation: 2 Paroxysmal Sweats: 2 Orientation: 0-Oriented Tacttile Disturbances: 0-None Auditory Disturbances: 1-Very Mild Visual Disturbances: 1-Very Mild Sensitivity Headache: 2-Mild CIWA-Ar Total Score: 13 Admission ROS S - HPI Chief Complaint: WITHDRAWAL SYMPTOMS Allergies/Adverse Reactions: Allergies Allergy/AdvReac Type Severity Reaction Status Date / Time Fish Containing Products Allergy Intermediate Rash Verified 09/16/17 17:53 No Known Drug Allergies Allergy Verified 09/16/17 17:53 History of Present Illness: 62 Y.O. WOMAN WITH AN EXTENSIVE HISTORY OF ALCOHOL DEPENDENCE IS HERE FOR DETOX. SHE HAS HAD FREQUENT ADMISSIONS HERE FOR DETOX AND REHAB. LONGEST PERIOD SOBER HAS BEEN 15 YEARS. SHE STATES SHE IS CURRENTLY ENROLLED IN A MMTP AT [facility] AND REPORTS SHE HAS LAST MEDICATED TODAY (09/16/17) AT 50MG OF METHADONE. Exam Limitations: Physical Impairment (UNSTEADY GAIT; USES A ROLLATOR TO AMBULATE) - Ebola screening Have you traveled outside of the country in the last 21 days: No Have you had contact with anyone from an Ebola affected area: No Have you been sick,other than usual withdrawal symptoms: No Do you have a fever: No - Review of Systems Constitutional: Changes in sleep EENT: reports: Tearing, Nose Congestion Respiratory: reports: Shortness of Breath Cardiac: reports: No Symptoms Reported GI: reports: No Symptoms Reported : reports: No Symptoms Reported Musculoskeletal: reports: Back Pain Integumentary: reports: No Symptoms Reported Neuro: reports: Headache, Seizure, Tremors Endocrine: reports: No Symptoms Reported Hematology: reports: No Symptoms Reported Psychiatric: reports: Orientated x3 Other Systems: Reviewed and Negative Patient History - Patient Medical History Hx Anemia: Yes (H/O RUBIO ) Hx Asthma: Yes Hx Chronic Obstructive Pulmonary Disease (COPD): Yes Hx Cancer: No Hx Cardiac Disorders: No Hx Congestive Heart Failure: No Hx Hypertension: Yes Hx Hypercholesterolemia: No Hx Pacemaker: No HX Cerebrovascular Accident: No Hx Seizures: No Hx Dementia: No Hx Diabetes: No Hx Gastrointestinal Disorders: Yes (GASTRITIS ) Hx Liver Disease: No Hx Genitourinary Disorders: No Hx Sexually Transmitted Disorders: No Hx Renal Disease (ESRD): No Hx Thyroid Disease: No Hx Human Immunodeficiency Virus (HIV): No (NEGATIVE HX) Hx Hepatitis C: Yes (carrier) Hx Depression: No Hx Suicide Attempt: No Hx Bipolar Disorder: No Hx Schizophrenia: No - Patient Surgical History Past Surgical History: Yes Hx Neurologic Surgery: No Hx Cataract Extraction: No Hx Cardiac Surgery: No Hx Lung Surgery: No Hx Breast Surgery: No Hx Breast Biopsy: No Hx Abdominal Surgery: No Hx Appendectomy: No Hx Cholecystectomy: No Hx Genitourinary Surgery: No Hx Section: No Hx Orthopedic Surgery: No Hx Hysterectomy: No Other Surgical History: TONSILLECTOMY AT 7 YRS OLD Anesthesia Reaction: No - PPD History Results: CXR 01/14/16 - Reproductive History Patient is a Female of Child Bearing Age (11 -55 yrs old): No Last Menstrual Period: 12/23/05 Patient : No - Smoking Cessation Smoking history: Current every day smoker Have you smoked in the past 12 months: Yes Aproximately how many cigarettes per day: 20 Hx Chewing Tobacco Use: No Initiated information on smoking cessation: Yes 'Breaking Loose' booklet given: 09/16/17 - Substance & Tx. History Hx Alcohol Use: Yes Hx Substance Use: Yes (LAST USED HEROIN IN 1969) Substance Use Type: Alcohol Hx Substance Use Treatment: Yes (DETOX: 04/2017 REHAB: 2016) - Substances Abused Alcohol Route: Oral Frequency: Daily Amount used: 3/40 oz coorslight Age of first use: 14 Date of Last Use: 09/16/17 Family Disease History - Family Disease History Family Disease History: Diabetes: Mother (parkinsons), Other: Father (alcoholic ), Mother Admission Physical Exam [facility] - Vital Signs Vital Signs: Vital Signs - 24 hr 09/16/17 16:36 Temperature 97.2 F L Pulse Rate 72 Respiratory 18 Rate Blood Pressure 116/72 - Physical General Appearance: Yes: Obese, Tremorous, Anxious HEENTM: Yes: Hearing grossly Normal, Normal ENT Inspection, Normocephalic, Normal Voice Respiratory: Yes: Chest Non-Tender, Lungs Clear, Wheezing Neck: Yes: No masses,lesions,Nodules, Trachea in good position Breast: Yes: Breast Exam Deferred Cardiology: Yes: Regular Rhythm, Regular Rate Abdominal: Yes: Normal Bowel Sounds, Non Tender, Flat, Soft Genitourinary: Yes: Other (NO COMPLAINTS REPORTED) Back: Yes: Normal Inspection Musculoskeletal: Yes: Back pain, Muscle weakness, Other (UNSTEADY GAIT; AMBULATES WITH THE USE OF A WALKER) Extremities: Yes: Swelling (B/L LE) Neurological: Yes: Fully Oriented, Normal Mood/Affect, Normal Response Integumentary: Yes: Dry, Warm, Other (SKIN DISCOLORATION) Lymphatic: Yes: Within Normal Limits - Addiitonal Findings: SK - Diagnostic (1) Opioid dependence on agonist therapy Current Visit: Yes Status: Chronic (2) Gastritis Current Visit: Yes Status: Inactive (3) Alcohol dependence with uncomplicated withdrawal Current Visit: Yes Status: Chronic (4) Asthma Current Visit: Yes Status: Chronic (5) COPD (chronic obstructive pulmonary disease) Current Visit: Yes Status: Chronic Qualifiers: COPD type: chronic bronchitis Chronic bronchitis type: simple Qualified Code(s): J41.0 - Simple chronic bronchitis (6) Essential hypertension Current Visit: Yes Status: Chronic (7) Hepatitis C Current Visit: Yes Status: Chronic (8) Nicotine dependence Current Visit: Yes Status: Chronic Qualifiers: Nicotine product type: cigarettes Substance use status: uncomplicated Qualified Code(s): F17.210 - Nicotine dependence, cigarettes, uncomplicated (9) Low back pain Current Visit: Yes Status: Chronic Qualifiers: Back pain laterality: unspecified (10) PVD (peripheral vascular disease) Current Visit: Yes Status: Chronic (11) Walker as ambulation aid Current Visit: Yes Status: Chronic Cleared for Admission [facility] - Detox or Rehab [facility] Level of Care: Medically Managed Detox Regimen/Protocol: Librium [facility] Breath Alcohol Content Breath Alcohol Content: 0.025 Urine Pregancy Test - Result Urine Test Results: Negative- NO Line Present Urine Drug Screen - Results Drug Screen Negative: No Urine Drug Screen Results: MTD-Methadone
[2017-09-16] MEDS ORDERED: MAG HYDROX/AL HYDROX/SIMETH 30 ML UNIT-DOSE CUP PO PRN (21:14)
[2017-09-16] MEDS ORDERED: LOPERAMIDE HCL 2 MG CAPSULE PO PRN (21:14)
[2017-09-16] MEDS ORDERED: chlordiazePOXIDE HCL 25 MG CAPSULE PO ONE (21:14)
[2017-09-16] MEDS ORDERED: IBUPROFEN 400 MG TABLET (FP) PO PRN (21:14)
[2017-09-16] MEDS ORDERED: hydrOXYzine PAMOATE 50 MG CAPSULE (FP) PO PRN (21:14)
[2017-09-16] MEDS ORDERED: MAGNESIUM CITRATE 300 ML BOTTLE PO PRN (21:14)
[2017-09-16] MEDS ORDERED: MAGNESIUM HYDROX 2400MG/30ML ORAL SUSPENSION 30 ML CUP PO PRN (21:14)
[2017-09-16] MEDS ORDERED: guaiFENesin/D-METHORPHAN HB 10 ML UNIT-DOSE CUPS PO PRN (21:14)
[2017-09-16] MEDS ORDERED: MENTHOL/PHENOL 1 EACH UD MM PRN (21:14)
[2017-09-16] MEDS ORDERED: chlordiazePOXIDE HCL 25 MG CAPSULE PO PRN (21:14)
[2017-09-16] MEDS ORDERED: P-EPHED 60MG/TRIPROLIDI 2.5MG TABLET PO PRN (21:14)
[2017-09-16] MEDS ORDERED: ALBUTEROL SO4 18 GM HFA INHALER IH PRN (21:16)
[2017-09-16] MEDS ORDERED: diphenhydrAMINE HCL 25 MG CAPSULE (FP) PO PRN (21:16)
[2017-09-16] MEDS: BUDESONIDE/FORMETEROL FUMARATE 80/4.5 mcg INHALER IH SCH (22:38)
[2017-09-16] MEDS: chlordiazePOXIDE HCL 25 MG CAPSULE PO SCH (22:39)
[2017-09-16] MEDS: MONTELUKAST NA 10 MG TABLET PO SCH (22:39)
[2017-09-16] MEDS: RANITIDINE HCL 150 MG TABLET (FP) PO SCH (22:42)
[2017-09-16] MEDS: THIAMINE HCL 100 MG TABLET (FP) PO SCH (22:42)
[2017-09-16 22:54] LABS: URINE APPEARANCE CLEAR; URINE BILIRUBIN NEGATIVE (NEGATIVE); URINE BLOOD NEGATIVE (NEGATIVE); URINE COLOR YELLOW; URINE GLUCOSE (UA) NEGATIVE (NEGATIVE); URINE KETONE NEGATIVE (NEGATIVE); URINE LEUK ESTERASE NEGATIVE (NEGATIVE); URINE NITRITE NEGATIVE (NEGATIVE); URINE PROTEIN NEGATIVE (NEGATIVE)
[2017-09-17] MEDS: ACETAMINOPHEN 325 MG TABLET (FP) PO PRN (00:28)
[2017-09-17] MEDS: chlordiazePOXIDE HCL 25 MG CAPSULE PO SCH ×4 (05:30→22:28)
[2017-09-17] MEDS ORDERED: METHADONE HCL 40 MG DISPERSABLE TABLET PO SCH (09:15)
[2017-09-17] MEDS ORDERED: METHADONE HCL 10 MG TABLET ONE (09:21)
[2017-09-17] MEDS ORDERED: METHADONE HCL 40 MG DISPERSABLE TABLET ONE (09:21)
[2017-09-17] MEDS: METHADONE 40 MG, METHADONE 10 MG PO SCH (09:33)
[2017-09-17] MEDS: ASPIRIN COATED 81 MG TABLET.EC PO SCH (09:33)
[2017-09-17] MEDS: PRENATAL VITAMINS W/ FOLIC ACID TABLET (FP) PO SCH (09:33)
[2017-09-17] MEDS: RANITIDINE HCL 150 MG TABLET (FP) PO SCH ×2 (09:33→22:28)
[2017-09-17] MEDS: BUDESONIDE/FORMETEROL FUMARATE 80/4.5 mcg INHALER IH SCH ×2 (09:34→22:28)
[2017-09-17] MEDS: NICOTINE 21 MG/24 HOURS TOPICAL PATCH TD SCH (09:36)
[2017-09-17 10:11] LABS: CHLORIDE 106 mmol/L (98-107); HEMATOCRIT 39.2 % (32.4-45.2); HEMOGLOBIN 12.7 GM/dL (10.7-15.3); MCH 29.4 pg (25.7-33.7); MCHC 32.4 g/dl (32.0-36.0); MEAN CELL VOLUME 90.7 fl (80-96); MEAN PLT VOLUME 9.5 fl (7.5-11.1); PLATELET COUNT 163 K/MM3 (134-434); RBC 4.32 M/mm3 (3.60-5.2); RDW 14.2 % (11.6-15.6); SODIUM 140 mmol/L (136-145); WHITE BLOOD COUNT 6.5 K/mm3 (4.0-10.0)
[2017-09-17] MEDS: ENALAPRIL MALEATE 10 MG TABLET (FP) PO SCH (10:32)
[2017-09-17] MEDS: HYDROCHLOROTHIAZIDE 25 MG TABLET (FP) PO SCH (10:32)
[2017-09-17 10:37] LABS: ALK PHOS 94 U/L (45-117); ANION GAP 6 (8-16); BILIRUBIN,TOTAL 0.7 mg/dL (0.2-1.0); BLOOD UREA NITROGEN 15 mg/dL (7-18); CO2 28 mmol/L (21-32); CREATININE 0.5 mg/dL (0.55-1.02); GLUCOSE,RANDOM 103 mg/dL (74-106); SGOT/AST 19 U/L (15-37); SGPT/ALT 20 U/L (12-78); TOT PROT 6.4 g/dl (6.4-8.2)
--- NOTE | 2017-09-17 21:17 | PN ---
S CIWA - CIWA Score Nausea/Vomitin Muscle Tremors: 3 Anxiety: 3 Agitation: 3 Paroxysmal Sweats: 3 Orientation: 0-Oriented Tacttile Disturbances: 0-None Auditory Disturbances: 0-None Visual Disturbances: 0-None Headache: 0-None Present CIWA-Ar Total Score: 15 BHS Progress Note (SOAP) Subjective: shakes sweats Objective: 09/17/17 21:15 A & o x 3 ambulates with a walker Vital Signs Temperature 98.4 F 09/17/17 18:16 Pulse Rate 72 09/17/17 18:16 Respiratory Rate 18 09/17/17 18:16 Blood Pressure 134/78 09/17/17 18:16 O2 Sat by Pulse Oximetry (%) Laboratory Last Values WBC 6.5 K/mm3 (4.0-10.0) 09/17/17 07:40 RBC 4.32 M/mm3 (3.60-5.2) 09/17/17 07:40 Hgb 12.7 GM/dL (10.7-15.3) 09/17/17 07:40 Hct 39.2 % (32.4-45.2) 09/17/17 07:40 MCV 90.7 fl (80-96) 09/17/17 07:40 MCH 29.4 pg (25.7-33.7) 09/17/17 07:40 MCHC 32.4 g/dl (32.0-36.0) 09/17/17 07:40 RDW 14.2 % (11.6-15.6) 09/17/17 07:40 Plt Count 163 K/MM3 (134-434) 09/17/17 07:40 MPV 9.5 fl (7.5-11.1) 09/17/17 07:40 Sodium 140 mmol/L (136-145) 09/17/17 07:40 Potassium 4.0 mmol/L (3.5-5.1) 09/17/17 07:40 Chloride 106 mmol/L (98-107) 09/17/17 07:40 Carbon Dioxide 28 mmol/L (21-32) 09/17/17 07:40 Anion Gap 6 (8-16) L 09/17/17 07:40 BUN 15 mg/dL (7-18) 09/17/17 07:40 Creatinine 0.5 mg/dL (0.55-1.02) L 09/17/17 07:40 Creat Clearance w eGFR > 60 (>60) 09/17/17 07:40 Random Glucose 103 mg/dL (74-106) 09/17/17 07:40 Calcium 8.0 mg/dL (8.5-10.1) L 09/17/17 07:40 Total Bilirubin 0.7 mg/dL (0.2-1.0) D 09/17/17 07:40 AST 19 U/L (15-37) 09/17/17 07:40 ALT 20 U/L (12-78) 09/17/17 07:40 Alkaline Phosphatase 94 U/L (45-117) 09/17/17 07:40 Total Protein 6.4 g/dl (6.4-8.2) 09/17/17 07:40 Albumin 3.0 g/dl (3.4-5.0) L 09/17/17 07:40 Urine Color Yellow 09/16/17 22:15 Urine Appearance Clear 09/16/17 22:15 Urine pH 6.0 (5.0-8.0) 09/16/17 22:15 Ur Specific [place] 1.012 (1.001-1.035) 09/16/17 22:15 Urine Protein Negative (NEGATIVE) 09/16/17 22:15 Urine Glucose (UA) Negative (NEGATIVE) 09/16/17 22:15 Urine Ketones Negative (NEGATIVE) 09/16/17 22:15 Urine Blood Negative (NEGATIVE) 09/16/17 22:15 Urine Nitrite Negative (NEGATIVE) 09/16/17 22:15 Urine Bilirubin Negative (NEGATIVE) 09/16/17 22:15 Urine Urobilinogen 2.0 mg/dL (0.2-1.0) H 09/16/17 22:15 Ur Leukocyte Esterase Negative (NEGATIVE) 09/16/17 22:15 RPR Titer Nonreactive (NONREACTIVE) 09/17/17 07:40 labs noted Assessment: 09/17/17 21:16 withdrawal sx Plan: continue detox
[2017-09-17] MEDS: MONTELUKAST NA 10 MG TABLET PO SCH (22:28)
[2017-09-17] MEDS: THIAMINE HCL 100 MG TABLET (FP) PO SCH (22:28)
[2017-09-18] MEDS ORDERED: METHADONE HCL 40 MG DISPERSABLE TABLET ONE (04:27)
[2017-09-18] MEDS ORDERED: METHADONE HCL 10 MG TABLET ONE (04:27)
[2017-09-18] MEDS: chlordiazePOXIDE HCL 25 MG CAPSULE PO SCH ×3 (05:28→17:12)
[2017-09-18] MEDS: METHADONE 40 MG, METHADONE 10 MG PO SCH (05:28)
[2017-09-18] MEDS: PRENATAL VITAMINS W/ FOLIC ACID TABLET (FP) PO SCH (10:18)
[2017-09-18] MEDS: BUDESONIDE/FORMETEROL FUMARATE 80/4.5 mcg INHALER IH SCH ×2 (10:19→22:21)
[2017-09-18] MEDS: RANITIDINE HCL 150 MG TABLET (FP) PO SCH ×2 (10:20→22:18)
[2017-09-18] MEDS: ENALAPRIL MALEATE 10 MG TABLET (FP) PO SCH (10:20)
[2017-09-18] MEDS: HYDROCHLOROTHIAZIDE 25 MG TABLET (FP) PO SCH (10:20)
[2017-09-18] MEDS: ASPIRIN COATED 81 MG TABLET.EC PO SCH (10:20)
[2017-09-18] MEDS: NICOTINE 21 MG/24 HOURS TOPICAL PATCH TD SCH (10:21)
[2017-09-18] MEDS: ACETAMINOPHEN 325 MG TABLET (FP) PO PRN (13:44)
--- NOTE | 2017-09-18 15:45 | PN ---
[facility] CIWA - CIWA Score Nausea/Vomitin-Mild Nausea/No Vomiting Muscle Tremors: 3 Anxiety: 3 Agitation: 3 Paroxysmal Sweats: 1-Minimal Palms Moist Orientation: 0-Oriented Tacttile Disturbances: 0-None Auditory Disturbances: 0-None Visual Disturbances: 0-None Headache: 0-None Present CIWA-Ar Total Score: 11 S Progress Note (SOAP) Subjective: sweat tremor anxiety restlessness Objective: 09/18/17 15:44 Vital Signs Temperature 96.5 F L 09/18/17 14:20 Pulse Rate 77 09/18/17 14:20 Respiratory Rate 18 09/18/17 14:20 Blood Pressure 102/66 09/18/17 14:20 O2 Sat by Pulse Oximetry (%) Laboratory Last Values WBC 6.5 K/mm3 (4.0-10.0) 09/17/17 07:40 RBC 4.32 M/mm3 (3.60-5.2) 09/17/17 07:40 Hgb 12.7 GM/dL (10.7-15.3) 09/17/17 07:40 Hct 39.2 % (32.4-45.2) 09/17/17 07:40 MCV 90.7 fl (80-96) 09/17/17 07:40 MCH 29.4 pg (25.7-33.7) 09/17/17 07:40 MCHC 32.4 g/dl (32.0-36.0) 09/17/17 07:40 RDW 14.2 % (11.6-15.6) 09/17/17 07:40 Plt Count 163 K/MM3 (134-434) 09/17/17 07:40 MPV 9.5 fl (7.5-11.1) 09/17/17 07:40 Sodium 140 mmol/L (136-145) 09/17/17 07:40 Potassium 4.0 mmol/L (3.5-5.1) 09/17/17 07:40 Chloride 106 mmol/L (98-107) 09/17/17 07:40 Carbon Dioxide 28 mmol/L (21-32) 09/17/17 07:40 Anion Gap 6 (8-16) L 09/17/17 07:40 BUN 15 mg/dL (7-18) 09/17/17 07:40 Creatinine 0.5 mg/dL (0.55-1.02) L 09/17/17 07:40 Creat Clearance w eGFR > 60 (>60) 09/17/17 07:40 Random Glucose 103 mg/dL (74-106) 09/17/17 07:40 Calcium 8.0 mg/dL (8.5-10.1) L 09/17/17 07:40 Total Bilirubin 0.7 mg/dL (0.2-1.0) D 09/17/17 07:40 AST 19 U/L (15-37) 09/17/17 07:40 ALT 20 U/L (12-78) 09/17/17 07:40 Alkaline Phosphatase 94 U/L (45-117) 09/17/17 07:40 Total Protein 6.4 g/dl (6.4-8.2) 09/17/17 07:40 Albumin 3.0 g/dl (3.4-5.0) L 09/17/17 07:40 Urine Color Yellow 09/16/17 22:15 Urine Appearance Clear 09/16/17 22:15 Urine pH 6.0 (5.0-8.0) 09/16/17 22:15 Ur Specific [place] 1.012 (1.001-1.035) 09/16/17 22:15 Urine Protein Negative (NEGATIVE) 09/16/17 22:15 Urine Glucose (UA) Negative (NEGATIVE) 09/16/17 22:15 Urine Ketones Negative (NEGATIVE) 09/16/17 22:15 Urine Blood Negative (NEGATIVE) 09/16/17 22:15 Urine Nitrite Negative (NEGATIVE) 09/16/17 22:15 Urine Bilirubin Negative (NEGATIVE) 09/16/17 22:15 Urine Urobilinogen 2.0 mg/dL (0.2-1.0) H 09/16/17 22:15 Ur Leukocyte Esterase Negative (NEGATIVE) 09/16/17 22:15 RPR Titer Nonreactive (NONREACTIVE) 09/17/17 07:40 lab noted Assessment: 09/18/17 15:44 withdrawal sx Plan: continue detox
[2017-09-18] MEDS: THIAMINE HCL 100 MG TABLET (FP) PO SCH (22:18)
[2017-09-18] MEDS: MONTELUKAST NA 10 MG TABLET PO SCH (22:18)
[2017-09-18] MEDS: chlordiazePOXIDE 5 MG CAPSULE PO SCH (22:19)
[2017-09-19] MEDS ORDERED: METHADONE HCL 40 MG DISPERSABLE TABLET ONE (04:35)
[2017-09-19] MEDS ORDERED: METHADONE HCL 10 MG TABLET ONE (04:36)
[2017-09-19] MEDS: chlordiazePOXIDE 5 MG CAPSULE PO SCH ×3 (06:09→17:04)
[2017-09-19] MEDS: METHADONE 40 MG, METHADONE 10 MG PO SCH (06:09)
[2017-09-19] MEDS: ASPIRIN COATED 81 MG TABLET.EC PO SCH (10:26)
[2017-09-19] MEDS: BUDESONIDE/FORMETEROL FUMARATE 80/4.5 mcg INHALER IH SCH ×2 (10:26→22:06)
[2017-09-19] MEDS: HYDROCHLOROTHIAZIDE 25 MG TABLET (FP) PO SCH (10:26)
[2017-09-19] MEDS: RANITIDINE HCL 150 MG TABLET (FP) PO SCH ×2 (10:26→22:07)
[2017-09-19] MEDS: PRENATAL VITAMINS W/ FOLIC ACID TABLET (FP) PO SCH (10:26)
[2017-09-19] MEDS: ENALAPRIL MALEATE 10 MG TABLET (FP) PO SCH (10:26)
--- NOTE | 2017-09-19 10:28 | PN ---
S Progress Note (SOAP) Subjective: alert oriented x 3 ambulate with walker steady gait no sweat less tremor Objective: 09/19/17 10:24 Vital Signs Temperature 97.3 F L 09/19/17 06:20 Pulse Rate 71 09/19/17 06:20 Respiratory Rate 18 09/19/17 06:20 Blood Pressure 111/80 09/19/17 06:20 O2 Sat by Pulse Oximetry (%) Laboratory Last Values WBC 6.5 K/mm3 (4.0-10.0) 09/17/17 07:40 RBC 4.32 M/mm3 (3.60-5.2) 09/17/17 07:40 Hgb 12.7 GM/dL (10.7-15.3) 09/17/17 07:40 Hct 39.2 % (32.4-45.2) 09/17/17 07:40 MCV 90.7 fl (80-96) 09/17/17 07:40 MCH 29.4 pg (25.7-33.7) 09/17/17 07:40 MCHC 32.4 g/dl (32.0-36.0) 09/17/17 07:40 RDW 14.2 % (11.6-15.6) 09/17/17 07:40 Plt Count 163 K/MM3 (134-434) 09/17/17 07:40 MPV 9.5 fl (7.5-11.1) 09/17/17 07:40 Sodium 140 mmol/L (136-145) 09/17/17 07:40 Potassium 4.0 mmol/L (3.5-5.1) 09/17/17 07:40 Chloride 106 mmol/L (98-107) 09/17/17 07:40 Carbon Dioxide 28 mmol/L (21-32) 09/17/17 07:40 Anion Gap 6 (8-16) L 09/17/17 07:40 BUN 15 mg/dL (7-18) 09/17/17 07:40 Creatinine 0.5 mg/dL (0.55-1.02) L 09/17/17 07:40 Creat Clearance w eGFR > 60 (>60) 09/17/17 07:40 Random Glucose 103 mg/dL (74-106) 09/17/17 07:40 Calcium 8.0 mg/dL (8.5-10.1) L 09/17/17 07:40 Total Bilirubin 0.7 mg/dL (0.2-1.0) D 09/17/17 07:40 AST 19 U/L (15-37) 09/17/17 07:40 ALT 20 U/L (12-78) 09/17/17 07:40 Alkaline Phosphatase 94 U/L (45-117) 09/17/17 07:40 Total Protein 6.4 g/dl (6.4-8.2) 09/17/17 07:40 Albumin 3.0 g/dl (3.4-5.0) L 09/17/17 07:40 Urine Color Yellow 09/16/17 22:15 Urine Appearance Clear 09/16/17 22:15 Urine pH 6.0 (5.0-8.0) 09/16/17 22:15 Ur Specific [place] 1.012 (1.001-1.035) 09/16/17 22:15 Urine Protein Negative (NEGATIVE) 09/16/17 22:15 Urine Glucose (UA) Negative (NEGATIVE) 09/16/17 22:15 Urine Ketones Negative (NEGATIVE) 09/16/17 22:15 Urine Blood Negative (NEGATIVE) 09/16/17 22:15 Urine Nitrite Negative (NEGATIVE) 09/16/17 22:15 Urine Bilirubin Negative (NEGATIVE) 09/16/17 22:15 Urine Urobilinogen 2.0 mg/dL (0.2-1.0) H 09/16/17 22:15 Ur Leukocyte Esterase Negative (NEGATIVE) 09/16/17 22:15 RPR Titer Nonreactive (NONREACTIVE) 09/17/17 07:40 lab noted Assessment: 09/19/17 10:25 mild withdrawal sx Plan: medically supervised detox patient wants to leave today reports tolerating mild withdrawal sx well patient is willing to reconsider the possibility to leave 09/20/17 to complete librium regimen
[2017-09-19] MEDS: NICOTINE 21 MG/24 HOURS TOPICAL PATCH TD SCH (10:30)
[2017-09-19] MEDS: ACETAMINOPHEN 325 MG TABLET (FP) PO PRN (18:04)
[2017-09-19] MEDS: THIAMINE HCL 100 MG TABLET (FP) PO SCH (22:06)
[2017-09-19] MEDS: chlordiazePOXIDE HCL 10 MG CAPSULE PO SCH (22:06)
[2017-09-19] MEDS: MONTELUKAST NA 10 MG TABLET PO SCH (22:06)
[2017-09-20] MEDS: ACETAMINOPHEN 325 MG TABLET (FP) PO PRN (01:44)
[2017-09-20] MEDS ORDERED: METHADONE HCL 40 MG DISPERSABLE TABLET ONE (04:18)
[2017-09-20] MEDS ORDERED: METHADONE HCL 10 MG TABLET ONE (04:19)
[2017-09-20] MEDS: METHADONE 40 MG, METHADONE 10 MG PO SCH (05:14)
[2017-09-20] MEDS: chlordiazePOXIDE HCL 10 MG CAPSULE PO SCH (05:15)
--- NOTE | 2017-09-20 08:56 | DS ---
[facility] Detox Discharge Summary Admission Date: 09/16/17 Discharge Date: 09/20/17 - History Present History: Alcohol Dependence - Physical Exam Results Vital Signs: Vital Signs Temperature 98.2 F 09/20/17 06:26 Pulse Rate 80 09/20/17 06:26 Respiratory Rate 19 09/20/17 06:26 Blood Pressure 102/68 09/20/17 06:26 O2 Sat by Pulse Oximetry (%) Pertinent Admission Physical Exam Findings: WITHDRAWAL SX Laboratory Last Values WBC 6.5 K/mm3 (4.0-10.0) 09/17/17 07:40 RBC 4.32 M/mm3 (3.60-5.2) 09/17/17 07:40 Hgb 12.7 GM/dL (10.7-15.3) 09/17/17 07:40 Hct 39.2 % (32.4-45.2) 09/17/17 07:40 MCV 90.7 fl (80-96) 09/17/17 07:40 MCH 29.4 pg (25.7-33.7) 09/17/17 07:40 MCHC 32.4 g/dl (32.0-36.0) 09/17/17 07:40 RDW 14.2 % (11.6-15.6) 09/17/17 07:40 Plt Count 163 K/MM3 (134-434) 09/17/17 07:40 MPV 9.5 fl (7.5-11.1) 09/17/17 07:40 Sodium 140 mmol/L (136-145) 09/17/17 07:40 Potassium 4.0 mmol/L (3.5-5.1) 09/17/17 07:40 Chloride 106 mmol/L (98-107) 09/17/17 07:40 Carbon Dioxide 28 mmol/L (21-32) 09/17/17 07:40 Anion Gap 6 (8-16) L 09/17/17 07:40 BUN 15 mg/dL (7-18) 09/17/17 07:40 Creatinine 0.5 mg/dL (0.55-1.02) L 09/17/17 07:40 Creat Clearance w eGFR > 60 (>60) 09/17/17 07:40 Random Glucose 103 mg/dL (74-106) 09/17/17 07:40 Calcium 8.0 mg/dL (8.5-10.1) L 09/17/17 07:40 Total Bilirubin 0.7 mg/dL (0.2-1.0) D 09/17/17 07:40 AST 19 U/L (15-37) 09/17/17 07:40 ALT 20 U/L (12-78) 09/17/17 07:40 Alkaline Phosphatase 94 U/L (45-117) 09/17/17 07:40 Total Protein 6.4 g/dl (6.4-8.2) 09/17/17 07:40 Albumin 3.0 g/dl (3.4-5.0) L 09/17/17 07:40 Urine Color Yellow 09/16/17 22:15 Urine Appearance Clear 09/16/17 22:15 Urine pH 6.0 (5.0-8.0) 09/16/17 22:15 Ur Specific [place] 1.012 (1.001-1.035) 09/16/17 22:15 Urine Protein Negative (NEGATIVE) 09/16/17 22:15 Urine Glucose (UA) Negative (NEGATIVE) 09/16/17 22:15 Urine Ketones Negative (NEGATIVE) 09/16/17 22:15 Urine Blood Negative (NEGATIVE) 09/16/17 22:15 Urine Nitrite Negative (NEGATIVE) 09/16/17 22:15 Urine Bilirubin Negative (NEGATIVE) 09/16/17 22:15 Urine Urobilinogen 2.0 mg/dL (0.2-1.0) H 09/16/17 22:15 Ur Leukocyte Esterase Negative (NEGATIVE) 09/16/17 22:15 RPR Titer Nonreactive (NONREACTIVE) 09/17/17 07:40 LAB NOTED - Treatment Hospital Course: Detox Protocol Followed, Detoxed Safely, Responded well, Discharged Condition Good, Rehab Referral Accepted Patient has Accepted a Rehab Referral to: [facility] - Medication Discharge Medications: Ambulatory Orders Aspirin Coated [Ecotrin -] 81 mg PO DAILY #30 tablet.ec 07/20/16 Ranitidine [Zantac -] 150 mg PO BID #60 tablet 07/20/16 Albuterol Sulfate Inhaler - [Ventolin HFA Inhaler -] 2 puff IH Q4H PRN #1 inhaler 09/20/17 Budesonide/Formeterol Fumarate [SYMBICORT 80/4.5mcg -] 2 puff IH BID #1 inhaler 09/20/17 Enalapril Maleate [Vasotec -] 20 mg PO DAILY #30 tablet 09/20/17 Hydrochlorothiazide [Hctz -] 25 mg PO DAILY #30 tablet 09/20/17 Montelukast Na [Singulair -] 10 mg PO HS #30 tablet 09/20/17 - Diagnosis (1) Alcohol dependence with uncomplicated withdrawal Current Visit: Yes Status: Acute (2) Asthma Current Visit: Yes Status: Chronic Qualifiers: Asthma severity: mild Asthma persistence: intermittent Asthma complication type: with status asthmaticus Qualified Code(s): J45.22 - Mild intermittent asthma with status asthmaticus (3) COPD (chronic obstructive pulmonary disease) Current Visit: Yes Status: Chronic Qualifiers: COPD type: chronic bronchitis Chronic bronchitis type: simple Qualified Code(s): J41.0 - Simple chronic bronchitis (4) Essential hypertension Current Visit: Yes Status: Chronic (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
[2017-09-20 10:04] VITALS: BP 104/66; PULSE 78; TEMP 98.1
[2017-09-20] MEDS: ASPIRIN COATED 81 MG TABLET.EC PO SCH (10:07)
[2017-09-20] MEDS: PRENATAL VITAMINS W/ FOLIC ACID TABLET (FP) PO SCH (10:07)
[2017-09-20] MEDS: BUDESONIDE/FORMETEROL FUMARATE 80/4.5 mcg INHALER IH SCH (10:08)
[2017-09-20] MEDS: ENALAPRIL MALEATE 10 MG TABLET (FP) PO SCH (10:09)
[2017-09-20] MEDS: HYDROCHLOROTHIAZIDE 25 MG TABLET (FP) PO SCH (10:09)
--- NOTE | 2017-09-20 13:35 | EKG ---
Test Reason : Blood Pressure : / mmHG Vent. Rate : 074 BPM Atrial Rate : 074 BPM P-R Int : 192 ms QRS Dur : 092 ms QT Int : 422 ms P-R-T Axes : 056 025 044 degrees QTc Int : 468 ms NORMAL SINUS RHYTHM NORMAL ECG WHEN COMPARED WITH ECG OF 07-MAY-2017 17:42, NO SIGNIFICANT CHANGE WAS FOUND Confirmed by MD Barfield Daniel ([id number]) on 09/20/2017 1:35:38 PM Referred By: Confirmed By:Maurizio Barfield MD
== END 2017-09-20 10:14 | disposition home or self-care (01) | DRG 773 ==
LOC: YASAS 15:39 → Y6N 18:36
PROVIDERS: ADMIT Internal Medicine; ATTEND Internal Medicine
PROC: HZ2ZZZZ Detoxification Services for Substance Abuse Treatment (ICD-10-PCS; principal; 2017-09-16)
DX: F11.20 Opioid dependence, uncomplicated (principal); F10.230 Alcohol dependence with withdrawal, uncomplicated; I10 Essential (primary) hypertension; J45.22 Mild intermittent asthma with status asthmaticus; B18.2 Chronic viral hepatitis C; M54.5 Low back pain; I73.9 Peripheral vascular disease, unspecified; J41.0 Simple chronic bronchitis; K29.70 Gastritis, unspecified, without bleeding; R26.89 Other abnormalities of gait and mobility; Z99.89 Dependence on other enabling machines and devices; Z86.2 Personal history of diseases of the blood and blood-forming organs and certain disorders involving the immune mechanism
CPT/HCPCS: 36415; 80053; 81003; 85027; 86593; 93005; 93010